=== PATIENT | female | born 1995 | race Caucasian/White ===

== ENCOUNTER 2025-09-24 11:30 | Day surgery (SDC) | payer BC ==
[2025-09-24] MEDS ORDERED: Ondansetron PF 4 MG/2 ML Vial IVP PRN (12:09)
[2025-09-24] MEDS ORDERED: hydrALAZINE 20 MG/ML VIAL SLOW IVP PRN (12:09)
[2025-09-24 13:09] LABS: #Basophils Less than 0.03 10x3/uL (0.0-0.2); #Eosinophils 0.10 10x3/uL (0.0-0.5); #Monocytes 0.47 10x3/uL (0.0-1.1); #Neutrophils 6.90 10x3/uL (1.5-8.4); %Basophils 0.1 % (0.0-2.0); %Eosinophils 1.0 % (0.0-6.0); %Lymphocytes 21.7 % (18.0-47.0); %Monocytes 4.9 % (0.0-10.0); %Neutrophils 71.9 % (40.0-75.0); Hematocrit 35.4 % (34.9-44.5); Hemoglobin 11.5 g/dL (12.0-15.5); Mean Corpuscular Hemoglobin 30.1 pg (27.0-33.0); Mean Corpuscular Volume 92.7 fL (81.6-98.3); Platelet Count 354 10x3/uL (150-450); Red Blood Cell (RBC) Count 3.82 10x6/uL (3.90-5.03); White Blood Cell (WBC) Count 9.60 10x3/uL (3.5-10.5)
[2025-09-24 13:13] LABS: Chloride 105 mmol/L (98-107); Potassium 4.1 mmol/L (3.5-5.1); Sodium 137 mmol/L (136-145)
[2025-09-24 14:28] LABS: ALT (SGPT) 12 U/L (Less than 34); AST (SGOT) 24 U/L (11-34); Albumin 3.4 g/dL (3.1-4.5); Alkaline Phosphatase 54 U/L (40-110); Anion Gap 13 mmol/L (10-20); BUN (Urea Nitrogen) 11 mg/dL (7.0-18.7); Bilirubin, Total 0.2 mg/dL (0.3-1.2); Calc. Creatinine Clearance 0 mL/min (70-130); Calcium 9.3 mg/dL (7.8-10.44); Carbon Dioxide 23 mmol/L (22-29); Globulin 3.3 g/dL (2.4-3.5); Glucose 84 mg/dL (70-105)
== END 2025-09-24 15:30 | disposition home health service (06) ==
LOC: CSHLD/OP 11:30
PROVIDERS: ATTEND Family Medicine
DX: O34.512 Maternal care for incarceration of gravid uterus, second trimester (principal); N85.8 Other specified noninflammatory disorders of uterus; Z3A.21 21 weeks gestation of pregnancy
CPT/HCPCS: 76817; 80053; 85025; 96360; 96361; 99284